=== PATIENT | female | born 1935 | race Native Hawaiian/Other Pacific Islander ===

== ENCOUNTER 2021-09-29 19:23 | Emergency (ER) | payer OTHER ==
[~2021-09-29] VITALS: Ht 160 cm; Wt 62.1 kg
[2021-09-29 19:30] VITALS: BP 186/93; TEMP 98.5
[2021-09-29 19:33] LABS: PLATELET COUNT 225 K/uL (152-353)
[2021-09-29 19:47] LABS: POTASSIUM 3.6 mmol/L (3.6-5.2)
[2021-09-29] MEDS ORDERED: ALBU90AE13 INH (23:03)
[2021-09-29] MEDS ORDERED: VITAMIN D2000 UNIT PO (23:05)
[2021-09-29] MEDS ORDERED: TAB-A-VIT1 PO (23:06)
[2021-09-29] MEDS ORDERED: MONTELUKAST SOD10 MG PO (23:10)
[2021-09-29] MEDS ORDERED: DONEPEZIL HYDRO10 M1 PO (23:11)
[2021-09-29] MEDS ORDERED: COZAAR25 MG PO (23:11)
[2021-09-29] MEDS ORDERED: BUDE1AER5 INH (23:13)
[2021-09-29] MEDS ORDERED: LIPITOR10 MG PO (23:13)
[2021-09-29] MEDS ORDERED: ALPR0.5T24 PO (23:15)
[2021-09-29] MEDS ORDERED: SEROQUEL25 MG PO ×2 (23:49)
[2021-09-30] MEDS ORDERED: ALPR0.2566 PO (11:51)
[2021-10-02] MEDS ORDERED: QUETIAPINE25 MG PO ×2 (09:05)
== END 2021-09-29 20:30 | disposition still patient (30) ==
LOC: ED 19:23
PROVIDERS: Emergency Medicine
DX: R46.89 Other symptoms and signs involving appearance and behavior (principal); I10 Essential (primary) hypertension; Z11.52 Encounter for screening for COVID-19; Z04.6 Encounter for general psychiatric examination, requested by authority
CPT/HCPCS: 36415; 80053; 81000; 85027; 87635; 93005; 99283; U0003

== ENCOUNTER 2021-10-05 05:09 | Inpatient (IN) | payer OTHER ==
[~2021-10-05] VITALS: Ht 152.4 cm; Wt 66.7 kg
[2021-10-05 05:09] VITALS: BP 172/76; TEMP 98.6
[~2021-10-05 05:09] MED LIST: ALBU90AE13 INH; ALPR0.2566 PO; ALPR0.5T24 PO; BUDE1AER5 INH; COZAAR25 MG PO; DONEPEZIL HYDRO10 M1 PO; LIPITOR10 MG PO; MONTELUKAST SOD10 MG PO; QUETIAPINE25 MG PO; SEROQUEL25 MG PO; TAB-A-VIT1 PO; VITAMIN D2000 UNIT PO
[2021-10-05 05:38] LABS: PLATELET COUNT 236 K/uL (152-353)
[2021-10-05 05:52] LABS: POTASSIUM 3.9 mmol/L (3.6-5.2)
[2021-10-05 06:01] LABS: PARTIAL THROMBOPLASTIN TIME 23.2 SECONDS (24.5-33.6)
[2021-10-05 07:00] VITALS: BP 166/71
[2021-10-05 09:00] VITALS: BP 190/79; TEMP 98.2
[2021-10-05 10:00] VITALS: BP 162/52; TEMP 98.2; Ht 152.4 cm; Wt 66.7 kg
[2021-10-05 11:00] VITALS: BP 160/61; TEMP 98.4
[2021-10-05 12:00] VITALS: BP 168/89; TEMP 98.4
[2021-10-06] MEDS ORDERED: OLAN10INJ IM (17:01)
[2021-10-06] MEDS ORDERED: LORA2INJ21 INJ (17:02)
== END 2021-10-05 12:40 | disposition other institution (70) | DRG 884 ==
LOC: ED 05:09 → ICU 06:30
PROVIDERS: ADMIT Hospitalist; ATTEND Family Medicine
DX: R40.4 Transient alteration of awareness (principal); K21.9 Gastro-esophageal reflux disease without esophagitis; I10 Essential (primary) hypertension; E78.49 Other hyperlipidemia; J44.9 Chronic obstructive pulmonary disease, unspecified; F03.90 Unspecified dementia, unspecified severity, without behavioral disturbance, psychotic disturbance, mood disturbance, and anxiety
CPT/HCPCS: 36415; 51702; 80053; 81000; 82550; 82805; 83605; 83880; 84484; 85027; 85610; 85730; 87040; 87205; 87635; 93005; 94760; 99285; J3490; U0003